=== PATIENT | female | born 1935 | race Caucasian/White ===

== ENCOUNTER 2016-07-10 05:11 | Observation (INO) | payer MEDICARE, OTHER ==
[~2016-07-10] VITALS: Ht 152.4 cm; Wt 85.6 kg
[~2016-07-10 05:11] MED LIST: ADVA100A INH; CALCTAB23 PO; ROSU10 PO; VITA100064 PO; XARE20TA PO; [UNRECOGNIZED DRUG - CODE] PO
[2016-07-10] MEDS ORDERED: ceFAZolin 2 GM PREMIX 50 ML IV SCH (05:30)
[2016-07-10] MEDS ORDERED: HEPARIN SODIUM - SQ 10,000 UNITS/ML VIAL SQ SCH (05:30)
[2016-07-10] MEDS ORDERED: SODIUM CHLORID 0.9% 500 ML IV PRN (05:45)
[2016-07-10] MEDS ORDERED: CHLORHEXIDINE GLUCONATE 2 % 1 PACK (2 CLOTHS) TOPICAL PRN (05:45)
[2016-07-10] MEDS ORDERED: LACTATED RINGER'S 1000 ML IV PRN (05:45)
[2016-07-10] MEDS ORDERED: INSULIN HUMAN REGULAR 1,000 UNITS/10 ML VIAL SQ PRN (05:45)
[2016-07-10] MEDS ORDERED: POVIDONE IODINE 5% (ANTISEPSIS KIT) 4 APPLICATIONS EACH NARE PRN (05:45)
[2016-07-10] MEDS ORDERED: METOPROLOL TARTRATE 25 MG TAB PO PRN (05:45)
[2016-07-10] MEDS ORDERED: CALC1TAB12 PO (06:03)
[2016-07-10] MEDS ORDERED: ASCO500T PO (06:03)
[2016-07-10 06:04] VITALS: BP 140/53; PULSE 60; RESP 18; TEMP 97.7; O2SAT 96
[2016-07-10] MEDS ORDERED: DEXAMETHASONE SOD PHOS 4 MG/ML VIAL ONE (07:00)
[2016-07-10] MEDS ORDERED: FAMOTIDINE 20 MG/2 ML VIAL ONE (07:00)
[2016-07-10] MEDS ORDERED: MIDAZOLAM HCL 2 MG/2 ML VIAL ONE (07:00)
[2016-07-10] MEDS ORDERED: methylPREDNISolone SOD SUCC 125 MG/2 ML VIAL ONE (07:06)
[2016-07-10] MEDS ORDERED: LIDOCAINE 1%/EPINEPHrine 1:100,000 SOLN 30 ML VIAL INFIL ONE (08:00)
[2016-07-10] MEDS ORDERED: METHYLENE BLUE 100 MG/10 ML VIAL OTHER ONE (09:56)
[2016-07-10] MEDS ORDERED: ceFAZolin INJ 1,000 MG VIAL IV ONE (10:47)
[2016-07-10] MEDS ORDERED: SUGAMMADEX SODIUM 200 MG/2 ML VIAL IV PUSH ONE ×2 (11:02)
[2016-07-10] MEDS ORDERED: DO NOT ADM ANY ANTICOAGULANT DRUGS PRN (11:41)
[2016-07-10] MEDS ORDERED: ONDANSETRON HCL 4 MG/2 ML VIAL IVP PRN (11:45)
[2016-07-10] MEDS ORDERED: diphenhydrAMINE HCL 25 MG CAP PO PRN (11:45)
[2016-07-10] MEDS ORDERED: SODIUM CHLORIDE 0.9% FLUSH 10 ML FLUSH IV FLUSH PRN (11:45)
[2016-07-10] MEDS ORDERED: LORazepam 0.5 MG TAB PO PRN (11:45)
[2016-07-10] MEDS ORDERED: oxyCODONE/ACETAMINOPHEN 5 MG/325 MG TAB PO PRN ×2 (11:45)
[2016-07-10] MEDS: KETOROLAC TROMETHAMINE 30 MG/ML (IVP) VIAL IVP SCH ×2 (11:58→17:54)
[2016-07-10] MEDS ORDERED: hydrALAZINE HCL 20 MG/ML VIAL IV ONE (12:00)
[2016-07-10] MEDS ORDERED: VECURONIUM BROMIDE 10 MG VIAL IV ONE (12:00)
[2016-07-10] MEDS ORDERED: NORMOSOL R INJ 1,000 ML IV ONE (12:00)
[2016-07-10] MEDS ORDERED: ONDANSETRON HCL 4 MG/2 ML VIAL IV PUSH ONE (12:00)
[2016-07-10] MEDS ORDERED: PROPOFOL 200 MG/20 ML AMP IV ONE (12:00)
[2016-07-10] MEDS ORDERED: fentaNYL CITRATE 250 MCG/5 ML AMP ONE (12:06)
[2016-07-10] MEDS: D5-1/2 NS + KCL 20 MEQ INJ 1,000 ML IV SCH ×3 (12:07→21:23)
[2016-07-10] MEDS ORDERED: *MEPERIDINE 25 MG INJ VIAL PERIprocedural Use ONLY ONE (12:09)
[2016-07-10 12:50] VITALS: BP 133/63; PULSE 64; RESP 16; TEMP 96; O2SAT 97
[2016-07-10] MEDS: BUDESONIDE-FORMOTEROL 80/4.5 MCG INHALER INH SCH ×2 (14:00→22:40)
[2016-07-10] MEDS: PHENAZOPYRIDINE HCL 100 MG TAB PO SCH ×2 (15:15→21:23)
--- NOTE | 2016-07-10 15:21 | PD.ONC.PN ---
Subjective Subjective Remarks post op note pt is sitting up in chair no complaints except michael is bothering her she is drinking fernando taylor without any nausea or vomiting daughter at bedside Objective Data Date Time Temp Pulse Resp B/P Pulse Ox O2 Delivery O2 Flow Rate FiO2 07/10/16 12:50 96.0 64 16 133/63 97 07/10/16 12:45 97.7 66 14 122/58 99 Nasal Cannula 2 07/10/16 12:30 68 15 120/56 99 Nasal Cannula 2 07/10/16 12:15 76 20 125/56 98 Nasal Cannula 2 07/10/16 12:00 71 14 105/54 97 Nasal Cannula 2 07/10/16 11:47 97.1 75 14 142/77 98 Nasal Cannula 2 07/10/16 06:04 97.7 60 18 140/53 96 07/10/16 07/10/16 07/10/16 07:00 15:00 23:00 Intake Total 1500 ml Output Total 500 ml Balance 1000 ml Laboratory Results Laboratory Tests Test 07/10/16 05:50 Blood Type O NEGATIVE Antibody Screen NEGATIVE Blood Bank Comment Administered Medications Medications (Trade) Dose Ordered Sig/Toney Route PRN Reason Start Time Stop Time Status Last Admin Dose Admin Lactated Ringer's 1,000 ml @ 30 mls/hr Q24H PRN IV SEE LABEL COMMENTS 07/10/16 05:45 07/13/16 05:44 07/10/16 06:00 Potassium Chloride/Dextrose/ Sod Cl (D5-1/2 NS + KCl 20 Meq Inj) 1,000 ml @ 100 mls/hr Q10H IV 07/10/16 11:34 07/10/16 12:07 Ketorolac Tromethamine (Toradol Inj) 15 mg Q6H IVP 07/10/16 13:00 07/11/16 07:01 07/10/16 11:58 Objective Remarks GENERAL: Well-nourished, well-developed patient. SKIN: Warm and dry. HEAD: Normocephalic. EYES: No scleral icterus. No injection or drainage. CARDIOVASCULAR: afib RESPIRATORY: Breath sounds equal bilaterally. No accessory muscle use. GASTROINTESTINAL: Abdomen soft, non-tender, nondistended EXTREMITIES: teds and scds MUSCULOSKELETAL: Adequate muscle tone. NEUROLOGICAL: No obvious focal deficit. Awake, alert, and oriented x3. PSYCHIATRIC: Appropriate mood and affect; insight and judgment normal. Assessment/Plan Problem List: (1) Post-operative state Status: Acute Plan: s/p RA Lap hyst with BSO and lysis of adhesions post op orders in chart pain meds per EMR OOB to chair IS to bedside ADAT anticipate d/c home tomorrow will start Pyridium to help with bladder irritation. Attending Statement Dr. Do is in agreement with plan of care. Leigha Chang July 10, 2016 15:21
[2016-07-10 16:25] VITALS: BP 127/97; PULSE 73; RESP 16; TEMP 98; O2SAT 96
[2016-07-10] MEDS: HEPARIN SODIUM - SQ 10,000 UNITS/ML VIAL SQ SCH (19:00)
[2016-07-10 19:40] VITALS: O2SAT 94
[2016-07-10 20:01] VITALS: BP 126/94; PULSE 72; RESP 16; TEMP 98.2; O2SAT 96
[2016-07-10] MEDS ORDERED: SODIUM CHLORIDE 0.9% FLUSH 10 ML FLUSH IV FLUSH SCH (21:00)
[2016-07-11] VITALS: BP 148/74; PULSE 80; RESP 16; TEMP 98.8; O2SAT 93
[2016-07-11] MEDS: KETOROLAC TROMETHAMINE 30 MG/ML (IVP) VIAL IVP SCH ×2 (01:19→06:17)
[2016-07-11 04:00] VITALS: BP 127/61; PULSE 68; RESP 16; TEMP 98.6; O2SAT 95
[2016-07-11] MEDS: PHENAZOPYRIDINE HCL 100 MG TAB PO SCH (06:17)
[2016-07-11] MEDS: D5-1/2 NS + KCL 20 MEQ INJ 1,000 ML IV SCH (06:17)
[2016-07-11] MEDS: HEPARIN SODIUM - SQ 10,000 UNITS/ML VIAL SQ SCH (06:38)
[2016-07-11] MEDS ORDERED: OXYC1TAB63 PO (07:23)
[2016-07-11] MEDS ORDERED: BACT800T5 PO (07:30)
[2016-07-11 08:00] VITALS: BP 140/61; PULSE 62; RESP 20; TEMP 97.9; O2SAT 94
[2016-07-11] MEDS ORDERED: ATORVASTATIN 20 MG TAB PO SCH (09:00)
--- NOTE | 2016-07-12 16:44 | MD ---
cc: LEONARD SHANKS M.D., KELLY L. MD ESTELLA GUTIÉRREZ ADMISSION DATE: 07/10/2016 DISCHARGE DATE: 07/11/2016 PROCEDURE PERFORMED: 07/10/2016: Laparoscopy, lysis of adhesions, robotic-assisted laparoscopic hysterectomy, bilateral salpingo-oophorectomy, extensive lysis of adhesions. DIAGNOSIS: Uterine carcinosarcoma. HOSPITAL COURSE: She did well early on in the postoperative period. She was hemodynamically stable and tolerating oral intake. She was already up and out of bed in a chair the afternoon of surgery. Her Miles catheter remains in place. In's and out's: 3460/1750. Labs are pending at the time of this dictation. PHYSICAL EXAMINATION: VITAL SIGNS: Afebrile, pulse 64 to 72, respirations 16, blood pressure 126-148/63-97. Oxygen saturation greater than or equal to 95% while awake. GENERAL: Alert and oriented times three. LUNGS: Clear at the apices. Mild rales at the bases. CARDIOVASCULAR: Irregular rate and rhythm consistent with baseline atrial fibrillation but with controlled ventricular rate. ABDOMEN: Soft. Incisions are clean and dry. STAKES PLAYER: No bleeding. EXTREMITIES: Nontender. ASSESSMENT: Postop day #1 doing well in early postoperative period. Findings preliminary pathology. Activity restrictions discussed and reviewed. Extensive adhesions found at the time of surgery reviewed. Repair cystotomy and need for indwelling Miles catheter explained. Questions were answered. To take once daily antibiotic prophylaxis. PLAN: Anticipate discharge to home. She is to contact our office to schedule follow up in approximately 10 days. She is to resume her prior medications and she can re-start her Xarelto tomorrow. She will resume her other medications now. She had a prescription for Percocet and for once daily antibiotic suppression with the indwelling Miles. MD MARION Do/KENYATTA /7:28 AM /4:37 PM
--- NOTE | 2016-07-21 08:03 | MP ---
cc: LEONARD SHANKS M.D., KELLY L. MD ESTELLA GUTIÉRREZ DATE OF SURGERY 07/10/2016 PREOPERATIVE DIAGNOSIS High-grade uterine cancer/carcinosarcoma. POSTOPERATIVE DIAGNOSES 1. High-grade uterine cancer/carcinosarcoma. 2. Extensive intraperitoneal and pelvic adhesions. PROCEDURE Robotic-assisted laparoscopic hysterectomy, bilateral salpingo-oophorectomy. Extensive lysis of adhesions. Repair of cystotomy. SURGEON Ileana Do MD CONDEMNATION ENGINEER [place] practice assistant. ANESTHESIA General endotracheal anesthesia. ESTIMATED BLOOD LOSS 200 cc. IV FLUIDS 1400 cc. URINE OUTPUT 250 cc. HISTORY This is an 81-year-old female with postmenopausal bleeding, thickened endometrial stripe. Biopsy showed a high-grade endometrial cancer with changes suggestive of carcinosarcoma, no overt evidence of metastatic disease on imaging. She has been counseled regarding these findings. She has had multiple prior surgeries, concern regarding adhesions and other issues were discussed at length. She was seen in the preop holding area where these findings were again reviewed. Questions were answered. She had a good understanding and wished to move forward with the surgery. FINDINGS Upon entry into the peritoneal cavity there were extensive adhesions to omentum to small bowel, focally adherent to the anterior and lateral abdominal mccabe and the pelvis. There were adhesions obliterating partially the cul-de-sac. Adnexa were affixed to the posterior sidewall. The bladder was scarred to the uterus. There was no overt evidence of metastatic disease. No adenopathy. No peritoneal implants. The uterus once removed showed a tumor that appeared to be with no overt evidence of invasion into the myometrium. STATEMENT OF COMPLEXITY The complexly this case was significantly increased due to extensive adhesions. A significant amount of time was spent lysing adhesions, gaining safe entry into the peritoneal cavity to improve anatomy and to accomplish surgical objectives modified. PROCEDURE The patient was seen in the operating room, placed in dorsal lithotomy position after general endotracheal anesthesia was administered. Time-out was undertaken. The patient was identified by sight recognition and hospital ID bracelet and the proposed procedure was reviewed and confirmed. She was carefully positioned in padded Al stirrups. Her arms were padded and secured to her sides. She was further secured to the operating table with eggcrate padding and tape in across-chest, [id number] fashion. All sites were noted to be properly aligned with no malalignments or pressure points. She was prepped in sterile fashion, draped below the waist, placed in lithotomy position. The cervix was grasped, uterine cavity sounded. The cervix was dilated and a V-Care manipulator and Miles catheter inserted in the usual fashion. A change of sterile gloves was undertaken. We completed draping in anticipation of laparoscopy, confirmed that she had an orogastric tube in the stomach on suction. With manual elevation of the abdominal wall and direct laparoscopic visualization, a 5-mm cannula was introduced into the left upper quadrant. Carbon dioxide gas was insufflated. Visibility confirmed that extensive adhesions, loops of bowel, omentum and transverse colon all adherent to the anterior abdominal wall. Whereas there was a window in the left upper quadrant identified that was safe; there was no immediate site available in the abdomen for any additional cannulas. Accordingly, the cannulas were positioned in such a way in the lower abdomen to avoid the extensive adhesions to the extent possible. An incision was made and an 8-mm cannula placed in the left lower lateral abdomen. Blunt and sharp dissection was used to take down adhesions near the umbilicus and mobilized loops of bowel and omentum such that the adhesions were removed above the level of the umbilicus. Now a 12-mm cannula was placed below the umbilicus, an 8-mm cannula placed in the right lower abdomen, another 8-mm cannula placed in the lateral lower left pelvis. Peritoneal washings were obtained for cytology. The bowel was folded back on it mesentery to the extent possible. Three Ray-Beto sponges were placed in the peritoneal cavity. The robotic system was brought into the operative field, attached in usual fashion. Monopolar scissors, fenestrated bipolar forceps and ProGrasp manipulators were placed in arms #1, 2, 3 respectively and I took my place at the surgeon's console. The right round ligament was isolated, cauterized, transected. The anterior and posterior leaves of the broad ligament were opened. Retroperitoneal dissection was continued. The right ureter was identified. The right infundibulopelvic ligament was isolated, cauterized and transected. Sharp dissection was utilized to mobilize the adnexa with attachments against the right pelvic sidewall and to open the posterior cul-de-sac and the right vesicouterine peritoneum was dissected off the lower uterine segment and cervix as additional dissection was carried out to free up scar tissue in this region. The right uterine vessels were skeletonized, cauterized and transected as were the cardinal, paracervical and uterosacral ligaments. Attention was directed toward the left side. Retroperitoneal dissection was carried out. Lysis of adhesions was necessary to mobilize the sigmoid colon from its attachments to the left pelvic sidewall and to free the ovary from its attachments to the left pelvic sidewall. The left round ligament was cauterized and transected. The anterior and posterior leaves of the broad ligament were further dissected until the left ureter was identified. The left infundibulopelvic ligament was isolated. The intervening peritoneum was opened. The infundibulopelvic ligament was isolated to the level of the pelvic brim where it was cauterized and transected. The posterior peritoneum was further dissected from the cervix and uterus. The vesicouterine peritoneum was dissected off the lower uterine segment and cervix with additional lysis of adhesions establishing the bladder flap. The left uterine vessels were skeletonized, cauterized and transected as were the cardinal, paracervical and uterosacral ligaments. Colpotomy was performed the cervix from the upper vagina. The specimen was withdrawn transvaginally which included uterus, cervix, tubes and ovaries. A pneumooccluder balloon was placed in the vagina to maintain pneumoperitoneum. Instruments 1 and 3 were exchanged for needle drivers as the 0 Vicryl suture was introduced. Vaginal cuff was closed with a running, full-thickness closure including the edge to the posterior peritoneum and the uterosacral ligament, tied via instrument tie and closure was held on countertraction as a continuous full-thickness closure was carried across the apex to the contralateral corner where it was similarly sutured, fixed and tied and the needle was cut and removed. The integrity of the bladder was assessed. The urine was filled with saline dyed with methylene blue. There was a good margin between the bladder edge and the vaginal cuff suture line, good peristalsis of the ureters bilaterally. A small cystotomy was confirmed at the dome of the bladder and then 3-0 Vicryl was introduced and the cystotomy was repaired with a running full-thickness 2-0 Vicryl suture. The bladder was again filled with saline dyed with methylene blue, confirming that the repair was watertight, no thin areas of the bladder and no extravasation of dye confirming intact bladder status post repair and the bladder was then drained. The robotic instruments were removed. The robotic system was disengaged from the operative field. I re-entered the bedside under sterile conditions. Each of the three Ray-Beto sponges which had been placed were now removed laparoscopically. Each were inspected and noted to be removed in their entirety. There were no remaining foreign objects in the peritoneal cavity except for the intentionally placed Marni hemostatic agent in the pelvis and preliminary counts were correct. The 12-mm fascial defect was closed with 0 Vicryl sutures using a needle pass apparatus under direct laparoscopic visualization which rendered the fascia completely air-tight and hemostatic. The remaining cannulae were withdrawn. Carbon dioxide gas was removed from the peritoneal cavity. 3-0 Vicryl subcutaneous, 3-0 Vicryl subcuticular and Steri-Strips were used to close the incisions. The patient was returned to dorsal lithotomy position. Pelvic exam confirmed the vaginal cuff to be well supported, hemostatic, no lacerations, no remaining foreign objects in the vagina and final counts were correct. She was returned to dorsal supine position and was pending reversal of anesthesia when I left the operating room to precede her to the post-anesthesia care unit. MD MARION Do/BOBY /6:19 AM /7:18 AM
== END 2016-07-11 11:57 | disposition home or self-care (01) ==
LOC: HSDC 05:11 → HSDI 11:40 → HOCB 12:51
PROVIDERS: ADMIT Obstetrics & Gynecology Gynecologic Oncology; ATTEND Obstetrics & Gynecology Gynecologic Oncology
DX: C55 Malignant neoplasm of uterus, part unspecified (principal); C54.1 Malignant neoplasm of endometrium; N95.0 Postmenopausal bleeding; K66.0 Peritoneal adhesions (postprocedural) (postinfection); I48.91 Unspecified atrial fibrillation
CPT/HCPCS: 00840; 58552; 86850; 86900; 86901; 88112; 88307; 88331; 94150; G0378; J0360; J0690; J1100; J1644; J1885; J2175; J2250; J2405; J2930; J3010; J3480; J7120